=== PATIENT | male | born 1960 | race Caucasian/White ===

== ENCOUNTER 2022-02-20 17:19 | Inpatient (IN) ==
[2022-02-20] MEDS ORDERED: Ondansetron 4 MG/2 ML VIAL IVP ONE (18:01)
[2022-02-20] MEDS ORDERED: 0.9 % Sodium Chloride 1,000 ML IV ONE ×2 (18:01→18:57)
[2022-02-20 18:19] LABS: Basophils % 0.2 %; Eosinophils % 0.4 %; Immature Granulocytes % 0.7 % (0-4); Lymphocytes # 1.2 K/mcL (0.6-4.6); Lymphocytes % 14.3 %; Mean Corpuscular HGB Conc 33.4 g/dL (31.6-35.5); Mean Corpuscular Hemoglobin 28.4 pg (28.0-33.3); Mean Corpuscular Volume 85.1 fL (83.0-100.0); Monocytes % 12.3 %; Neutrophils # 5.9 K/mcL (1.6-8.9); Platelet Count 259 K/mcL (140-400); Red Blood Count 6.69 M/mcL (4.19-5.50); Red Cell Distribution Width 15.1 % (11.5-14.5); Segmented Neutrophils % 72.1 %; White Blood Count 8.2 K/mcL (4.3-11.1)
[2022-02-20 18:26] LABS: Hematocrit 56.9 % (37.5-50.1)
[2022-02-20 18:34] LABS: Albumin 5.5 g/dL (3.5-5.7); Albumin/Globulin Ratio 1.7 (1.1-2.2); Bilirubin,Total 4.6 mg/dL (0.3-1.0); Calcium 11.4 mg/dL (8.6-10.3); Globulin 3.2 g/dL (2.4-3.5); Potassium 3.9 mEq/L (3.5-5.1); Total Protein 8.7 g/dL (6.4-8.9)
[2022-02-20 18:50] LABS: INR 1.1; Prothrombin Time 12.7 Seconds (9.4-12.1)
[2022-02-20 18:52] LABS: Bilirubin,Urine Moderate (Negative); Blood,Urine Negative (Negative); Clarity,Urine Slightly Cloudy (Clear); Color,Urine Yellow (Yellow); Glucose,Urine (UA) Normal (Normal); Ketones,Urine 15 mg/dL (Negative); Leukocyte Esterase,Urine Negative (Negative); Nitrite,Urine Negative (Negative); Protein,Urine 100 mg/dL (Neg-Trace); Specific Gravity,Urine >= 1.030 (1.010-1.025); Urobilinogen,Urine Normal (Normal)
[2022-02-20 18:53] LABS: Activated Partial Thrombo Time 34.1 Seconds (26.0-36.0)
[2022-02-20 19:00] LABS: Bacteria,Urine Few per hpf (None-Few); Calcium Oxalate Crystals,Urine Present per hpf; Granular Casts,Urine Few per lpf (None Seen); Mucus,Urine Few per lpf (None-Few); RBC,Urine 0-3 per hpf (0-3); Squamous Epithelial Cell,Urine Few per hpf (None-Few); WBC,Urine 0-3 per hpf (0-3)
[2022-02-20] MEDS ORDERED: 0.9 % Sodium Chloride 1,000 ML IVC SCH (20:15)
[2022-02-20 21:12] LABS: Calcium 9.4 mg/dL (8.6-10.3)
[2022-02-20 22:41] LABS: Bilirubin,Direct 0.5 mg/dL (0.0-0.2); Bilirubin,Total 3.8 mg/dL (0.3-1.0)
[2022-02-21] MEDS ORDERED: Ondansetron 4 MG/2 ML VIAL IVP PRN (01:05)
[2022-02-21] MEDS ORDERED: Naloxone 0.4 MG/ML INJ IVP PRN (01:05)
[2022-02-21 02:46] LABS: Basophils % 0.4 %; Eosinophils # 0.1 K/mcL (0.0-0.6); Eosinophils % 0.9 %; Hematocrit 47.5 % (37.5-50.1); Hemoglobin 15.9 g/dL (12.9-16.9); Immature Granulocytes % 0.7 % (0-4); Lymphocytes # 1.3 K/mcL (0.6-4.6); Lymphocytes % 22.6 %; Mean Corpuscular HGB Conc 33.5 g/dL (31.6-35.5); Mean Corpuscular Hemoglobin 28.5 pg (28.0-33.3); Mean Corpuscular Volume 85.3 fL (83.0-100.0); Mean Platelet Volume 10.9 fL (9.4-12.4); Monocytes # 0.8 K/mcL (0.0-1.3); Monocytes % 13.5 %; Neutrophils # 3.5 K/mcL (1.6-8.9); Platelet Count 193 K/mcL (140-400); Red Blood Count 5.57 M/mcL (4.19-5.50); Red Cell Distribution Width 14.1 % (11.5-14.5); Segmented Neutrophils % 61.9 %; White Blood Count 5.6 K/mcL (4.3-11.1)
[2022-02-21 02:59] LABS: Albumin 4.1 g/dL (3.5-5.7); Albumin/Globulin Ratio 1.9 (1.1-2.2); Bilirubin,Total 3.7 mg/dL (0.3-1.0); Globulin 2.2 g/dL (2.4-3.5); Potassium 3.9 mEq/L (3.5-5.1); Total Protein 6.3 g/dL (6.4-8.9)
[2022-02-21] MEDS: 0.9 % Sodium Chloride 1,000 ML IVC SCH ×3 (04:59→21:23)
[2022-02-21] MEDS: Aspirin Enteric Coated 81 MG Tablet PO SCH (09:58)
[2022-02-21] MEDS: Magnesium Oxide 400 MG TABLET PO SCH (09:58)
[2022-02-21] MEDS: MYCOPHENOLATE MOFETIL 500 MG PO SCH ×2 (09:59→21:23)
[2022-02-21] MEDS: MYCOPHENOLATE MOFETIL 250 MG PO SCH (17:27)
[2022-02-21] MEDS: *HR* Heparin 5,000 UNIT/ML VIAL SQ SCH (17:28)
[2022-02-21 21:00] LABS: Adenovirus F 40/41 PCR Not detected (Not detect); Astrovirus PCR Not detected (Not detect); C.difficile Toxin A/B Gene PCR Not detected (Not detect); Campylobacter by PCR Not detected (Not detect); Cryptosporidium by PCR Not detected (Not detect); Cyclospora cayetanensis PCR Not detected (Not detect); Entamoeba histolytica PCR Not detected (Not detect); Enteroaggregative E.coli(EAEC) Not detected (Not detect); Enteropathogenic E.coli(EPEC) Not detected (Not detect); Enterotoxigenic E.coli (ETEC) Not detected (Not detect); Giardia lamblia PCR Not detected (Not detect); Norovirus GI/GII PCR Not detected (Not detect); Plesiomonas shigelloides PCR Not detected (Not detect); Rotavirus A PCR Not detected (Not detect); Salmonella PCR Not detected (Not detect); Sapovirus PCR Not detected (Not detect); Shig/EnteroinvasiveE coli EIEC Not detected (Not detect); Shigalike tox-prod E coli STEC Not detected (Not detect); Vibrio PCR Not detected (Not detect); Vibrio cholerae PCR Not detected (Not detect); Yersinia enterocolitica PCR Not detected (Not detect)
[2022-02-22 04:07] LABS: Hematocrit 42.1 % (37.5-50.1); Hemoglobin 13.8 g/dL (12.9-16.9); Mean Corpuscular HGB Conc 32.8 g/dL (31.6-35.5); Mean Corpuscular Hemoglobin 28.6 pg (28.0-33.3); Mean Corpuscular Volume 87.3 fL (83.0-100.0); Platelet Count 160 K/mcL (140-400); Red Blood Count 4.82 M/mcL (4.19-5.50); Red Cell Distribution Width 14.2 % (11.5-14.5); White Blood Count 5.4 K/mcL (4.3-11.1)
[2022-02-22 04:23] LABS: Calcium 8.4 mg/dL (8.6-10.3); Magnesium 1.8 mg/dL (1.6-2.6); Potassium 3.9 mEq/L (3.5-5.1)
[2022-02-22] MEDS: *HR* Heparin 5,000 UNIT/ML VIAL SQ SCH ×2 (05:43→16:05)
[2022-02-22] MEDS: 0.9 % Sodium Chloride 1,000 ML IVC SCH ×3 (05:44→21:29)
[2022-02-22] MEDS: Aspirin Enteric Coated 81 MG Tablet PO SCH (08:11)
[2022-02-22] MEDS: Magnesium Oxide 400 MG TABLET PO SCH (08:11)
[2022-02-22] MEDS: MYCOPHENOLATE MOFETIL 500 MG PO SCH ×2 (08:13→19:36)
[2022-02-22] MEDS: MYCOPHENOLATE MOFETIL 250 MG PO SCH (16:06)
[2022-02-23 05:23] LABS: Hematocrit 38.4 % (37.5-50.1); Hemoglobin 12.3 g/dL (12.9-16.9); Mean Corpuscular Hemoglobin 28.3 pg (28.0-33.3); Mean Corpuscular Volume 88.3 fL (83.0-100.0); Mean Platelet Volume 10.5 fL (9.4-12.4); Platelet Count 147 K/mcL (140-400); Red Blood Count 4.35 M/mcL (4.19-5.50); Red Cell Distribution Width 13.9 % (11.5-14.5)
[2022-02-23] MEDS: 0.9 % Sodium Chloride 1,000 ML IVC SCH (05:28)
[2022-02-23] MEDS: *HR* Heparin 5,000 UNIT/ML VIAL SQ SCH (05:29)
[2022-02-23] MEDS: Aspirin Enteric Coated 81 MG Tablet PO SCH (08:08)
[2022-02-23] MEDS: Magnesium Oxide 400 MG TABLET PO SCH (08:08)
[2022-02-23] MEDS: MYCOPHENOLATE MOFETIL 500 MG PO SCH (08:12)
[2022-02-23 11:54] LABS: Albumin 3.3 g/dL (3.5-5.7); Albumin/Globulin Ratio 1.7 (1.1-2.2); Calcium 8.2 mg/dL (8.6-10.3); Magnesium 1.7 mg/dL (1.6-2.6); Potassium 3.8 mEq/L (3.5-5.1); Total Protein 5.3 g/dL (6.4-8.9)
[2022-02-23 12:01] VITALS: BP 151/83; PULSE 93; RESP 17; TEMP 97.6; O2SAT 93
== END 2022-02-23 13:11 | disposition home or self-care (01) | DRG 683 ==
LOC: EMEROOGRE 17:19 → INPGRE 17:19
PROVIDERS: ADMIT Internal Medicine; ATTEND Family Medicine